=== PATIENT | female | born 1970 | race Hispanic/Latino ===

== ENCOUNTER → 2018-03-27 | Outpatient (CLI) | payer OTHER ==
--- NOTE | 2018-03-27 17:23 | Diagnostic Imaging Report ---
EXAMINATION: CHEST 2 VIEWS INDICATION: \[id number] \S\[id number] \S\CHRONIC COUGH COMPARISON: None FINDINGS: PA and lateral views TUBES and LINES: None. LUNGS: Lungs are well inflated. Lungs are clear. Left lower lobe dense nodule likely calcified granuloma. Few additional medial right upper lobe tiny calcified granulomas. There is no evidence of pneumonia or pulmonary edema. PLEURA: No pleural effusion or pneumothorax. HEART AND MEDIASTINUM: The cardiomediastinal silhouette is unremarkable. BONES AND SOFT TISSUES: No acute osseous lesion. Bilateral breast implants. UPPER ABDOMEN: No free air under the diaphragm. IMPRESSION: No acute thoracic abnormality. Few bilateral calcified granulomas. Signed by: Dr. Afia Funk M.D. on 03/27/2018 5:19 PM
== END ==
LOC: RAD 16:45
PROVIDERS: ATTEND Family Medicine
DX: R05 Cough (principal)
CPT/HCPCS: 71046

== ENCOUNTER → 2018-04-09 | Day surgery (SDC) | payer OTHER ==
[2018-04-08 15:17] LABS: BASOPHILS # (AUTO) 0.1 (0.0-0.1); BASOPHILS % 0.6 % (0.0-1.0); EOSINOPHILS # (AUTO) 0.1 (0.0-0.4); HEMATOCRIT 38.9 % (34.2-44.1); HEMOGLOBIN 12.6 g/dL (12.0-16.0); LYMPHOCYTES # (AUTO) 2.3 (1.0-3.2); LYMPHOCYTES % 23.9 % (18.0-39.1); MEAN CORPUSCULAR HEMOGLOBIN 28.4 pg (28-32); MEAN CORPUSCULAR HGB CONC 32.4 g/dL (31-35); MEAN CORPUSCULAR VOLUME 87.8 fL (81-99); MONOCYTES # (AUTO) 0.6 (0.2-0.8); NEUTROPHILS # (AUTO) 6.4 (2.1-6.9); NEUTROPHILS % 68.3 % (38.7-80.0); PLATELET COUNT 359 x10e3/uL (140-360); RED BLOOD COUNT 4.43 x10e6/uL (3.6-5.1); RED CELL DISTRIBUTION WIDTH 12.9 % (11.7-14.4)
[2018-04-08 15:25] LABS: INR 1.16; PROTHROMBIN TIME 13.9 seconds (11.9-14.5)
[2018-04-08 15:31] LABS: ANION GAP 9.5 mmol/L (8-16); BLOOD UREA NITROGEN 9 mg/dL (7-26); BUN/CREATININE RATIO 11 (6-25); CALCIUM 8.8 mg/dL (8.4-10.2); CARBON DIOXIDE 25 mmol/L (22-29); CHLORIDE 104 mmol/L (98-107); CREATININE, SERUM 0.81 mg/dL (0.57-1.11); EST GLOMERULAR FILTRATION RATE > 60 ML/MIN (60-); GLUCOSE 85 mg/dL (74-118); POTASSIUM 3.5 mmol/L (3.5-5.1); SODIUM 135 mmol/L (136-145)
[~2018-04-09] MED LIST: ACETAMINOPHEN 1000 MG/100 ML 100 ML IV ONE; BACITRACIN 50,000 UNIT VIAL ONE; CEFAZOLIN SOD 1 GM VIAL ONE; DEXAMETHASONE SOD PHOS INJ 4 MG/ML VIAL IV ONE; EPHEDRINE SULFATE INJ 50 MG/10 ML SYR IV ONE; FENTANYL CITRATE/PF 100MCG/2 ML INJ ONE; LIDOCAINE HCL 2% LOCAL INJ 5 ML SDV VIAL INJ ONE; MIDAZOLAM HCL 2 MG/2 ML VIAL ONE; ONDANSETRON HCL INJ 2 MG/ML VIAL IV ONE; PROPOFOL IV EMULSION 10 MG/ML 20 ML VIAL IV ONE; SEVOFLURANE INHAL SOLN 250 ML PEN BTL INH ONE; TROKENDI PO
[2018-04-09 15:40] VITALS: BP 126/81
--- OUTSIDE RECORDS SUMMARY | 2018-04-30 07:40 | XMS REPORT | Summary of Care ---
Author Organization Unknown Address Unknown Phone Unavailable Encounter HQ Encntr_alias(FIN) [id number] Date(s): 12/09/14 - 12/09/14 [facility] Outpatient Imaging - [id number] [place] [address] [phone] Discharge Disposition: Home Physician Attending: Vijay Robbins MD Vital Signs No data available for this section Problem List No data available for this section Allergies, Adverse Reactions, Alerts Substance Reaction Severity Status NKDA Active Medications No data available for this section Results No data available for this section Immunizations No data available for this section Procedures No data available for this section Social History No data available for this section Assessment and Plan No data available for this section
--- OUTSIDE RECORDS SUMMARY | 2018-04-30 07:40 | XMS REPORT | Summary of Care ---
Author Organization Unknown Address Unknown Phone Unavailable Encounter HQ Encntr_alibrenda(SOWMYA) [id number] Date(s): 02/03/15 - 02/03/15 [facility] [address] [place] [address]- [phone] Discharge Disposition: Home Physician Attending: David Frausto MD Physician_Referring: David Frausto MD Vital Signs No data available for [...]
--- OUTSIDE RECORDS SUMMARY | 2018-04-30 07:40 | XMS REPORT | Summary of Care ---
Author Author [facility] Organization [facility] Address Unknown Phone Unavailable Encounter HQ Lucinda(SOWMYA) [id number] Date(s): 01/01/18 - 01/02/18 [facility] [address] [place] [address]- Discharge Disposition: Home or Self Care Attending Physician: Christine Garcia MD Admitting Physician: Christine Garcia MD Referring Physician: Christine Garcia MD Vital Signs 1 2 3 Most recent to oldest [Reference Range]: 172.72 cm (12/19/17 12:57 PM) Height 98.9 DegF (01/02/18 7:31 AM) 98 DegF (01/02/18 12:00 AM) 98.5 DegF (01/01/18 4:17 PM) Temperature Oral [96.4-99.1 DegF] 105/63 mmHg (01/02/18 7:31 AM) 96/58 mmHg (01/02/18 12:00 AM) 108/55 mmHg (01/01/18 4:17 PM) Blood Pressure [90-140/60-90 mmHg] 16 BRMIN (01/02/18 9:11 AM) 16 BRMIN (01/02/18 7:31 AM) 16 BRMIN (01/02/18 12:00 AM) Respiratory Rate [14-20 BRMIN] 71 bpm (01/02/18 7:31 AM) 53 bpm *LOW* (01/02/18 12:00 AM) 64 bpm (01/01/18 4:17 PM) Peripheral Pulse Rate [60-100 bpm] 70.455 kg (12/19/17 12:57 PM) Weight 23.62 m2 (12/19/17 12:57 PM) Body Mass Index Problem List Condition Effective Dates Status Health Status Informant Migraines(Confirmed) Active Allergies, Adverse Reactions, Alerts Substance Reaction Severity Status NKDA Active Medications acetaminophen (ANES) Route: IV, Drug form: INJ, ONCE, Stop date: 01/01/18 11:40:00 CDT Start Date: 01/01/18 Stop Date: 01/01/18 Status: Completed Aleve 220 mg, PO, none taken in 3 weeks, 0 Refill(s) Start Date: 12/19/17 Status: Ordered Ancef + sterile water 20 mL 2 gm, Route: IV, [id number], Dosing Weight 70.455, kg, Start date: 01/01/18 16:00: 00 CDT, Duration: 1 day, Stop date: 01/02/18 14:00:00 CDT, ABX Indication: Surgical Prophylaxis Notes: (Same As: Ancef, Kefzol) MEDICATION WASTE Product Size: 1000 mgProduct Wasted: ___ mg Start Date: 01/01/18 Stop Date: 01/02/18 Status: Discontinued ceFAZolin (ANES) Route: IV, Drug form: INJ, ONCE, Stop date: 01/01/18 11:35:00 CDT Start Date: 01/01/18 Stop Date: 01/01/18 Status: Completed D5W 1/2NS + KCL 20mEq/L 1000ml (Premix) 1,000 mL 1,000 mL, Rate: 75 ml/hr, Infuse over: 13.3 hr, Route: IV, Dosing Weight 70.455 kg, Total Volume: 1,000, Start date: 01/01/18 13:57:00 CDT, Duration: 30 day, Stop date: 01/31/18 13:56:00 CDT, 1.85, m2 Notes: PREMIX IV - Do Not AlterWASTE: F/P - Sink; E - Municipal Trash Bin Start Date: 01/01/18 Stop Date: 01/02/18 Status: Discontinued dexamethasone (ANES) Route: IV, Drug form: INJ, ONCE, Stop date: 01/01/18 11:40:00 CDT Start Date: 01/01/18 Stop Date: 01/01/18 Status: Completed ePHEDrine (ANES) Route: IV, Drug form: INJ, ONCE, Stop date: 01/01/18 11:40:00 CDT Start Date: 01/01/18 Stop Date: 01/01/18 Status: Completed fentaNYL (ANES) Route: IV, Drug form: INJ, ONCE, Stop date: 01/01/18 11:35:00 CDT Start Date: 01/01/18 Stop Date: 01/01/18 Status: Completed glycopyrrolate (ANES) Route: IV, Drug form: INJ, ONCE, Stop date: 01/01/18 11:40:00 CDT Start Date: 01/01/18 Stop Date: 01/01/18 Status: Completed Inderal LA 120 mg, 2 cap, Route: PO, Drug form: ERCAP, Daily, Dosing Weight 70.455, kg, Start date: 01/02/18 9:00:00 CDT, Duration: 30 day, Stop date: 01/31/18 9:00:00 CDT Notes: Take with food. Do not crush or chew. (Same as: Inderal LA) Start Date: 01/02/18 Stop Date: 01/02/18 Status: Discontinued ketOROLAC (ANES) IV, ONCE Start Date: 01/01/18 Stop Date: 01/01/18 Status: Completed Lactated Ringers Injection IV (ANES) 1000 mL Route: IV, Total Volume: 1,000, Start date: 01/01/18 10:37:00 CDT, Stop date: 11:37:00 CDT Start Date: 01/01/18 Stop Date: 01/01/18 Status: Completed Lactated Ringers Injection IV 1,000 mL 1,000 mL, Rate: 25 ml/hr, Infuse over: 40 hr, Route: IV, Dosing Weight 70.455 kg , Total Volume: 1,000, Start date: 01/01/18 8:11:00 CDT, Duration: 1 day, Stop date: 01/02/18 8:10:00 CDT, 1.85, m2 Start Date: 01/01/18 Stop Date: 01/01/18 Status: Discontinued lidocaine (ANES) Route: IV, Drug form: INJ, ONCE, Stop date: 01/01/18 11:35:00 CDT Start Date: 01/01/18 Stop Date: 01/01/18 Status: Completed metoclopramide (ANES) Route: IV, Drug form: INJ, ONCE, Stop date: 01/01/18 11:40:00 CDT Start Date: 01/01/18 Stop Date: 01/01/18 Status: Completed midazolam (ANES) Route: IV, Drug form: SOLN, ONCE, Stop date: 01/01/18 11:35:00 CDT Start Date: 01/01/18 Stop Date: 01/01/18 Status: Completed morphine Sulfate 6 mg, 3 mL, Route: PO, Drug form: SOLN, Q2H, Dosing Weight 70.455, kg, PRN Pain Score 7-10, Start date: 01/01/18 20:24:00 CDT, Stop date: 01/31/18 20:23:00 CDT Notes: (Same as:MORPhine Sulfate) Start Date: 01/01/18 Stop Date: 01/02/18 Status: Discontinued neostigmine (ANES) Route: IV, Drug form: INJ, ONCE, Stop date: 01/01/18 15:03:00 CDT Start Date: 01/01/18 Stop Date: 01/01/18 Status: Completed nitroglycerin 2% topical ointment 1 inch, Route: TOP, Drug Form: OINT, Dosing Weight 70.455, kg, BID, Start date: 01/02/18 9:00:00 CDT, Duration: 30 day, Stop date: 01/31/18 17:00:00 CDT Notes: 1 gram is approximately 1 inch of nitroglycerin ointment (20 mg NTG per gram) (Same as:Nitro-Bid) Start Date: 01/02/18 Stop Date: 01/02/18 Status: Discontinued nitroglycerin 2% topical ointment 0.5 inch, Route: TOP, Drug Form: OINT, Dosing Weight 70.455, kg, BID, NOW, Start date: 01/01/18 14:40:00 CDT, Duration: 30 day, Stop date: 01/31/18 9:00: 00 CDT Notes: 1 gram is approximately 1 inch of nitroglycerin ointment (20 mg NTG per gram) (Same as:Nitro-Bid) Start Date: 01/01/18 Stop Date: 01/01/18 Status: Discontinued Sims 5/325 oral tablet 2 tab, Route: PO, Drug Form: TAB, Dosing Weight 70.455, kg, Q4H, PRN Pain Score 4-6, Start date: 01/01/18 20:24:00 CDT, Duration: 30 day, Stop date: 01/31/18 20 :23:00 CDT Notes: (Same as: Sims 325/5) Do not exceed 4gm/day of acetaminophen. Start Date: 01/01/18 Stop Date: 01/02/18 Status: Discontinued Sims 5/325 oral tablet 1 tab, Route: PO, Drug Form: TAB, Dosing Weight 70.455, kg, Q4H, PRN Pain Score 1-3, Start date: 01/01/18 20:24:00 CDT, Duration: 30 day, Stop date: 01/31/18 20 :23:00 CDT Notes: (Same as: Sims 325/5) Do not exceed 4gm/day of acetaminophen. Start Date: 01/01/18 Stop Date: 01/02/18 Status: Discontinued phenylephrine (ANES) Route: IV, Drug form: INJ, ONCE, Stop date: 01/01/18 12:35:00 CDT Start Date: 01/01/18 Stop Date: 01/01/18 Status: Completed propofol (ANES) Route: IV, Drug form: INJ, ONCE, Stop date: 01/01/18 11:35:00 CDT Start Date: 01/01/18 Stop Date: 01/01/18 Status: Completed propranolol 120 mg oral capsule, extended release 120 mg=1 cap, PO, Daily, # 30 cap, 0 Refill(s) Start Date: 12/19/17 Stop Date: 01/18/18 Status: Ordered rocuronium (ANES) Route: IV, Drug form: INJ, ONCE, Stop date: 01/01/18 11:35:00 CDT Start Date: 01/01/18 Stop Date: 01/01/18 Status: Completed senna 8.6 mg, 1 tab, Route: PO, Drug Form: TAB, Dosing Weight 70.455, kg, BID, Start date: 01/01/18 17:00:00 CDT, Duration: 30 day, Stop date: 01/31/18 9:00:00 CDT Notes: (Same as: Senokot) Start Date: 01/01/18 Stop Date: 01/02/18 Status: Discontinued Valium 5 mg, 1 tab, Route: PO, Drug form: TAB, TID, Dosing Weight 70.455, kg, Start date: 01/01/18 17:00:00 CDT, Duration: 30 day, Stop date: 01/31/18 13:00:00 CDT Notes: (Same as: Valium) Start Date: 01/01/18 Stop Date: 01/02/18 Status: Discontinued Results No data available for this section Immunizations No data available for this section Procedures Procedure Date Related Diagnosis Body Site Status Colonoscopy Completed Esophagogastroduodenoscopy Completed Social History Social History Type Response Alcohol Never Smoking Status Never smoker; Exposure to Tobacco Smoke None; Cigarette Smoking Last 365 Days No; Reg Smoking Cessation Counseling No entered on: 01/01/18 Assessment and Plan Extracted from: Title: Clinical Document Author: Christine Garcia Date: 01/02/18 MD Breast Surgical Oncology POD #1 Pt examined with at bedside. No issues o/n. OOB and ambulating to bathroom, tolerating reg diet. Dressings removed; skin pink and warm bilaterally with minimal ecchymosis, right > left. The NAC and nipples are pink. Drains have normal SS SITA output. Condition: stable Diagnosis: Genetic mutation Activity: no heavy lifting Wound care: and bathing, per PRS team Diet: regular F/U: appts arranged with breast (lakesha) and PRS (melissa) Meds: All home rx have been arranged by PRS team Discharge instructions have been submitted Does not need to be seen by dr Lopez before discharge //
--- OUTSIDE RECORDS SUMMARY | 2018-04-30 07:40 | XMS REPORT | Continuity of Care Document ---
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 06/02/2017 [facility] G43 - MIGRAINE Active 2015 [facility] EPICGASTRIC PAIN Active 01/13 [facility] H/A INTERNAL TEREMORS Active 04/11/2014 [facility] Migraines Active Problem 01/05/2018 [facility] Medications Medication Details Route Status Patient Instructions Ordering Provider Order Date Source Nitroglycerin 0.02 MG/MG Topical Ointment 1 inch, Route: TOP, Drug Form: OINT, Dosing Weight 70.455, kg, BID, Start date: 9:00:00 CDT, Duration: 30 day, Stop date: 01/31/18 17:00:00 CDTNotes: 1 gram is approximately 1 inch of nitroglycerin ointment (20 mg NTG per gram) (Same as:Nitro-Bid) Inactive 2017 [facility] Propranolol 120 mg, 2 cap, Route: PO, Drug form: ERCAP , Daily, Dosing Weight 70.455, kg, Start date: 01/02/18 9:00:00 CDT, Duration: 30 day, Stop date: 01/31/18 9:00:00 CDTNotes: Take with food. Do not crush or chew. (Same as: Inderal LA) Inactive 01/02/2018 [facility] Morphine 6 mg, 3 mL, Route: PO, Drug form: SOLN, Q2H, Dosing Weight 70.455, kg, PRN Pain Score 7-10, Start date: 01/01/18 20:24:00 CDT , Stop date: 01/31/18 20:23:00 CDTNotes: (Same as:MORPhine Sulfate) No Longer Active 01/02/2018 [facility] Acetaminophen 325 MG / Hydrocodone Bitartrate 5 MG Oral Tablet [Diamond 5/325] 2 tab, Route: PO, Drug Form: TAB, Dosing Weight 70.455, kg, Q4H, PRN Pain Score 4-6, Start date: 01/01/18 20:24:00 CDT, Duration: 30 day , Stop date: 01/31/18 20:23:00 CDTNotes: (Same as: Diamond 325/5) Do not exceed 4gm/day of acetaminophen. No Longer Active 01/02/2018 [facility] Valium 5 mg, 1 tab, Route: PO, Drug form: TAB, TID, Dosing Weight 70.455, kg, Start date: 01/01/18 17:00:00 CDT, Duration: 30 day, Stop date: 01/31/18 13:00:00 CDTNotes: (Same as: Valium) No Longer Active 01/01/2018 [facility] sennosides, CORRECTION 8.6 mg, 1 tab, Route: PO, Drug Form: TAB, Dosing Weight 70.455, kg, BID, Start date: 01/01/18 17:00:00 CDT, Duration : 30 day, Stop date: 01/31/18 9:00:00 CDTNotes: (Same as: Senokot) No Longer Active 01/01/2018 [facility] Ancef + sterile water 20 mL 2 gm, Route: IV, [id number], Dosing Weight 70.455, kg, Start date: 01/01/18 16:00:00 CDT, Duration: 1 day, Stop date: 01/02/18 14:00:00 CDT, ABX Indication: Surgical ProphylaxisNotes: ( Same As: Ancef, Kefzol) MEDICATION WASTE Product Size: 1000 mg Product Wasted: ___ mg No Longer Active 01/01/2018 [facility] neostigmine (ANES) Route: IV, Drug form: INJ, ONCE, Stop date: 01/01/18 15:03:00 CDT Inactive 01/01/2018 [facility] Nitroglycerin 0.02 MG/MG Topical Ointment 0.5 inch, Route: TOP, Drug Form: OINT, Dosing Weight 70.455, kg, BID, NOW, Start date: 02/11 14:40:00 CDT, Duration: 30 day, Stop date: 01/31/18 9:00:00 CDTNotes: 1 gram is approximately 1 inch of nitroglycerin ointment (20 mg NTG per gram) ( Same as:Nitro-Bid) Inactive 01/2018 [facility] ketOROLAC (ANES) IV, ONCE Inactive 01/01/2018 [facility] D5W 1/2NS + KCL 20mEq/L 1000ml (Premix) 1,000 mL 1, 000 mL, Rate: 75 ml/hr, Infuse over: 13.3 hr, Route: IV, Dosing Weight 70.455 kg , Total Volume: 1,000, Start date: 01/01/18 13:57:00 CDT, Duration: 30 day, Stop date: 01/31/18 13:56:00 CDT, 1.85, u3Cjmht: PREMIX IV - Do Not Alter WASTE: F/P - Sink; E - Municipal Trash Bin No Longer Active 01/01/2018 [facility] phenylephrine (ANES) Route: IV, Drug form: INJ, ONCE, Stop date: 01/01/18 12:35:00 CDT Inactive 01/01/2018 [facility] dexamethasone (ANES) Route: IV, Drug form: INJ, ONCE, Stop date: 01/01/18 11:40:00 CDT Inactive 01/01/2018 [facility] acetaminophen (ANES) Route: IV, Drug form: INJ, ONCE, Stop date: 01/01/18 11:40:00 CDT Inactive 01/01/2018 [facility] metoclopramide (ANES) Route: IV, Drug form: INJ, ONCE , Stop date: 01/01/18 11:40:00 CDT Inactive 01/01/2018 [facility] glycopyrrolate (ANES) Route: IV, Drug form: INJ, ONCE , Stop date: 01/01/18 11:40:00 CDT Inactive 01/01/2018 [facility] ePHEDrine (ANES) Route: IV, Drug form: INJ, ONCE, Stop date: 01/01/18 11:40:00 CDT Inactive 01/01/2018 [facility] propofol (ANES) Route: IV, Drug form: INJ, ONCE, Stop date: 01/01/18 11:35:00 CDT Inactive 01/01/2018 [facility] fentaNYL (ANES) Route: IV, Drug form: INJ, ONCE, Stop date: 01/01/18 11:35:00 CDT Inactive 01/01/2018 [facility] rocuronium (ANES) Route: IV, Drug form: INJ, ONCE, Stop date: 01/01/18 11:35:00 CDT Inactive 01/01/2018 [facility] ceFAZolin (ANES) Route: IV, Drug form: INJ, ONCE, Stop date: 01/01/18 11:35:00 CDT Inactive 01/01/2018 [facility] lidocaine (ANES) Route: IV, Drug form: INJ, ONCE, Stop date: 01/01/18 11:35:00 CDT Inactive 01/01/2018 [facility] midazolam (ANES) Route: IV, Drug form: SOLN, ONCE, Stop date: 01/01/18 11:35:00 CDT Inactive 01/01/2018 [facility] Lactated Ringers Injection IV (ANES) 1000 mL Route: IV , Total Volume: 1,000, Start date: 01/01/18 10:37:00 CDT, Stop date: 01/01/18 11 :37:00 CDT Inactive 01/01/2018 [facility] Calcium Chloride 0.0014 MEQ/ML / Potassium Chloride 0.004 MEQ/ML / Sodium Chloride 0.103 MEQ/ML / Sodium Lactate 0.028 MEQ/ML Injectable Solution 1,000 mL, Rate: 25 ml/hr, Infuse over: 40 hr, Route: IV, Dosing Weight 70.455 kg, Total Volume: 1,000, Start date: 01/01/18 8:11:00 CDT, Duration: 1 day, Stop date: 01/02/18 8:10:00 CDT, 1.85, m2 Inactive 01/01/2018 [facility] Aleve 220 mg, PO, none taken in 3 weeks, 0 Refill(s) Active 12/19/2017 [facility] propranolol 120 mg oral capsule, extended release 120 mg=1 cap, PO, Daily, # 30 cap, 0 Refill(s) Active 12/19/2017 [facility] Allergies, Adverse Reactions, Alerts Substance Category Reaction Severity Reaction type Status Date Reported Comments Source Immunizations Immunization Date Given Site Status Last Updated Comments Source Results Order Name Results Value Reference Range Date Interpretation Comments Source Breast BX Perc Needle Core Uni MRI Breast BX Perc Needle Core Uni MRI MRI BIOPSY RIGHT BREAST: 07/30/2017 CLINICAL: /N63.0 Unspecified Lump In Unspecified Breast. PATIENT CONSENT: The procedure and its risks, benefits, and alternatives were explained in detail to the patient, who agreed to proceed and signed an informed consent form. All questions were answered. Correlation is made to exams dated: 07/10/2017 breast MRI, 07/10/2017 ultrasound, 07/10/2017 mammogram - [facility] , 04/18/2017 mammogram, and 04/18/2017 mammogram - [facility]. Axial and sagittal T1 and T2 images were obtained with a breast MRI. An MRI biopsy was requested for the 1.6 cm enhancement located in the right breast at 6 o'clock, 4 cm from the nipple. This was described on the previous MRI report. The procedure was canceled as the area of increased signal had decreased and appeared to be due to a tortuous vessel. IMPRESSION: MRI BIOPSY 1. MRI biopsy of the 1.6 cm linear enhancement in the RIGHT breast, 6:00, 4 cm FN was canceled due to enhancement less prominent and believed to be vascular in origin. RECOMMENDATION: 1. A BILATERAL mammogram and BILATERAL mammogram in December, and a bilateral contrast-enhanced breast MRI to stay on high-risk protocol. 2. CLINICAL FOLLOW-UP PER DR. MCKEON. I personally reviewed the imaging findings and recommendations with the patient. I emphasized to her to practice with self-examinations and to return immediately if she should note any concerning changes. Charlette Shaffer M.D. sg/:08/01/2017 18:50:07 Cable Reeler(s): Bailee Johnston, [facility] letter sent: High Risk Any BI-RADS 07/30/2017 - - Read by: Charlette Shaffer MD Dictated Date/time: 08/01/17 18:50 Electronically Signed by: Charlette Shaffer MD 08/01/17 18 :50 FINAL REPORT Formerly [facility] Breast w/wo contrast bilat MRI Breast w/wo contrast bilat MRI BREAST MRI OF BOTH BREASTS : 07/10/2017 CLINICAL: HISTORY: 47 yo high risk female with known CHEK2 genetic mutation and history of abnormal imaging at [facility] on 04/18/17. Ultrasound showed a probably benign 0.4 cm mass in the RIGHT breast at 5:00, 7 cm FN and a probably benign 0.7 cm cluster of cysts in the LEFT breast at 5:00, 2 cm FN. A six month follow-up was recommended. She also had a same day bilateral mammogram and bilateral ultrasound prior to undergoing an MRI. PLEASE SEE SEPARATE REPORT. Family history of breast cancer: sister at 30. Prior benign RIGHT core biopsy, 2012. No prior breast surgeries. COMPARISON:Comparison is made to exams dated: 07/10/2017 ultrasound, 2016 mammogram - [facility], 04/18/2017 mammogram, and 04/18/2017 mammogram - [facility]. INFORMED CONSENT: The procedure was explained to the patient including possible risks, benefits, complications and alternatives. The patient understood and desired to proceed. TECHNIQUE: High resolution 1.4 mm RODEO plus, axial acquisitions were obtained of both breasts using an [employer] 1.5 Narcisa dedicated breast MRI preceding and following the administration of 13 cc's of Multihance, subtraction, 2D and 3D maximum intensity projections (MIP), multiplanar reconstructions (MPR) and ELIZABETH Time Activity curves were performed on the Physician's Review Station with [employer]. MRI FINDINGS: RIGHT BREAST FINDINGS: I do not identify any definite evidence of spiculated or linear beaded enhancement to suggest malignancy. The biopsy proven fibroadenoma with clip and artifact at 10:00, posterior depth measures 2.1 cm in greatest dimension. The lesion shows predominantly low-signal persistent enhancement but several slices demonstrate internal plateau and washout enhancement (see axial image #65). Sagittal image 154/512 and axial image #96 demonstrates a 1.6 cm linear enhancement with persistent kinetics near 6:00, middle depth, 4 cm FN. Recommend MRI-guided biopsy. The 0.4 cm oval solid nodule at 5:00, 7 cm FN identified with same day ultrasound is not evident and presumed to be due to a benign process such as a fibroadenoma. A cyst was noted at 3:00, 5 cm FN on image #82.The nipple-areolar complex appears to be unremarkable. The visualized lymph nodes appear architecturally preserved. The chest wall structures appear normal. No internal mammary adenopathy. LEFT BREAST FINDINGS: I do not identify any definite evidence of spiculated or linear beaded enhancement to suggest malignancy. The nipple-areolar complex appears to be unremarkable. The visualized lymph nodes appear architecturally preserved. The chest wall structures appear normal. No internal mammary adenopathy. IMPRESSION: SUSPICIOUS OF MALIGNANCY 1. LINEAR ENHANCEMENT MEASURING 1.6 CM IN GREATEST AP DIMENSION, 6:00 RIGHT BREAST, MIDDLE DEPTH, 4 CM FN. RECOMMEND MRI-GUIDED BIOPSY. 2. 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 CONSIDER SURGICAL EXCISION. 3. THE 0.4 CM OVAL SOLID NODULE IDENTIFIED ON SAME DAY ULTRASOUND DOES NOT ENHANCE SUGGESTING BENIGN PROCESS AND CAN MOST LIKELY BE FOLLOWED. 4. THERE IS NO DEFINITE MRI EVIDENCE TO SUGGEST MALIGNANCY INVOLVING THE LEFT BREAST. 5. NO SUSPICIOUS ADENOPATHY. RECOMMENDATION: 1. PATIENT HAS BEEN TENTATIVELY SCHEDULED TO RETURN FOR A RIGHT BREAST MRI- GUIDED CORE BIOPSY ON 07/30/17. PENDING PHYSICIAN ORDERS AND INSURANCE AUTHORIZATION. Victor Manuel Jackson LVN telephonically discussed the findings and recommendations with the patient under my direction on 07/16/17. Charlette Shaffer M.D. sg/:07/16/2017 13:39:02 Cable Reeler(s): Bailee Johnston [facility] letter sent: BI-RADS 4/5 MRI BI-RADS: 4a Suspicious abnormality - low suspicion for malignancy 07/10/2017 - - Read by: Charlette Shaffer MD Dictated Date/time: 07/16/17 13:39 Electronically Signed by: Charlette Shaffer MD 07/16/17 13 :39 FINAL REPORT [facility] Breast Complete Tin US Breast Complete Tin US AMENDMENT: 07/14/2017 Charlette Shaffer M.D. The purpose of this addendum is to document that comparison has now been made to prior studies from [facility] dated 03/09/14, 02/27/15,and 03/01/16 and 04/18/17. The biopsy proven 1.7 x 1.7 x 1.1 cm fibroadenoma at the 10:00 position, RIGHT breast, posterior depth has SLIGHTLY INCREASED in size since 2013 (1.5 x 1.3 x 1.0 cm, 03/09/14). The oval solid nodule at 5:00, 7 cm FN in the RIGHT breast is believed to be NEW as well as the complex cystic cluster in the 5:00 position of the LEFT breast, 2 cm FN. The static ultrasound images confirm fluctuating fibrocystic changes bilaterally. Otherwise, there have been no other significant interval changes in either breast. Correlation with same day MRI to be performed. PLEASE SEE SEPARATE REPORT. Amended BI-RADS: 0 Indeterminate COMPLETE ULTRASOUND OF BOTH BREASTS AND AXILLA: 07/10/2017 CLINICAL: HISTORY: 47 yo high risk female with known CHEK2 genetic mutation and history of abnormal imaging at [facility] on 04/18/17. Ultrasound showed a probably benign 0.4 cm mass in the RIGHT breast at 5:00, 7 cm FN and a probably benign 0.7 cm cluster of cysts in the LEFT breast at 5:00, 2 cm FN. A six month follow-up was recommended. She is also scheduled for same day high risk screening breast MRI. Family history of breast cancer: sister at 30. Prior benign RIGHT core biopsy, 2012. No prior breast surgeries. COMPARISON: To be obtained from [facility]. RIGHT BREAST FINDINGS: The entire right breast was evaluated including all four quadrants, axillary tail, retroareolar region and axilla.The reported biopsy proven benign mass at 10:00, 5 cm FN is a well-circumscribed lobulated solid mass measuring 1.7 x 1.7 x 1.1 cm. No internal flow. At the 5:00 position, 7 cm FN, a circumscribed oval solid nodule measuring 0.4 x 0.4 x 0.3cm without internal flow was identified. Also, a 0.9 cm cyst with internal short septations at 4:00, 6 cm FN was seen. No additional abnormalities that would be suspicious for malignancy were identified. Scattered subcentimeter cysts were identified. No axillary adenopathy. LEFT BREAST AND AXILLA FINDINGS: The entire left breast was evaluated including all four quadrants, axillary tail, subareolar region and axilla. A 0.7 cm complex cluster of cysts with internal echoes and thick septations at 5:00, 2 cm FN was identified. No abnormalities that would be suspicious for malignancy were identified. No axillary adenopathy. IMPRESSION: INCOMPLETE: NEEDS ADDITIONAL IMAGING EVALUATION 1. 1.7 CM BIOPSIED MASS WITH RIBBON-CLIP, 10:00, RIGHT BREAST, POSTERIOR DEPTH , AND 0.4 CM FIBROADENOMA-LIKE NODULE, 5:00, RIGHT BREAST, 7 CM FN. I WOULD LIKE TO COMPARE WITH THE PRIOR STUDIES FROM [facility]. 2. MILD BILATERAL FIBROCYSTIC CHANGES; 0.7 CM COMPLEX CLUSTER OF CYSTS, 5:00, LEFT BREAST, 2 CM FN, TO BE CORRELATED WITH SAME DAY MRI WELL IMAGES FROM [facility]. 3. NO AXILLARY ADENOPATHY. RECOMMENDATION: 1. WE WILL ATTEMPT TO RETRIEVE THE PRIOR STUDIES FROM [facility] FOR COMPARISON AND AN ADDENDUM WILL BE ISSUED. ALSO, CORRELATION WILL BE MADE WITH SAME DAY MRI AND A SEPARATE REPORT WILL BE ISSUED. I personally reviewed the imaging findings and recommendations with the patient. Charlette Shaffer M.D. sg/:07/10/2017 19:04:54 Cable Reeler(s): Toña Hernandez R.D.M.S, [facility]; Deyanira Garcia, [facility] letter sent: Needs [facility] Ultrasound BI-RADS: 0 Indeterminate 07/10/2017 - - Read by: Charlette Shaffer MD Dictated Date/time: 07/14/17 12:33 Electronically Signed by: Charlette Shaffer MD 07/14/17 12 :33 FINAL REPORT - - Read by: Charlette Shaffer MD Dictated Date/time: 07/10/17 19:04 Electronically Signed by: Charlette Shaffer MD 07/10/17 19 :04 FINAL REPORT [facility] Breast Mammo Diag TIN w jose incl CAD MA Breast Mammo Diag TIN w jose incl CAD MA BILATERAL DIGITAL DIAGNOSTIC MAMMOGRAM 3D/2D WITH CAD: 07/10/2017 CLINICAL: HISTORY: 47 yo high risk female with known CHEK2 genetic mutation and history of abnormal imaging at [facility] on 04/18/17. Ultrasound showed a probably benign 0.4 cm mass in the RIGHT breast at 5:00, 7 cm FN and a probably benign 0.7 cm cluster of cysts in the LEFT breast at 5:00, 2 cm FN. A six month follow-up was recommended. She is also scheduled for same day high risk screening breast MRI. Family history of breast cancer: sister at 30. Prior benign RIGHT core biopsy, 2013. No prior breast surgeries. Current study was evaluated with a Computer Aided Detection (CAD) system. COMPARISON:Comparison is made to exams dated: 04/18/2017 mammogram and 2016 mammogram - [facility]. TECHNIQUE: Digital Breast Tomosynthesis was performed and utilized for Interpretation. Current study was also evaluated with a Computer Aided Detection (CAD) system. FINDINGS: The tissue of both breasts is heterogeneously dense and nodular, which could obscure detection of small masses. Core biopsy RIBBON-CLIP with 2.1 cm mass in the posterior upper outer RIGHT breast are evident and I would like to compare to the prior studies from [facility]. No significant masses, calcifications, or other findings are seen in the LEFT breast. IMPRESSION: INCOMPLETE: NEEDS ADDITIONAL IMAGING EVALUATION PLEASE SEE SAME DAY ULTRASOUND REPORT. Charlette Shaffer M.D. sg/:07/10/2017 19:04:54 Cable Reeler(s): Toña Hernandez R.D.M.S, [facility]; Deyanira Garcia, [facility] letter sent: Needs [facility] Mammogram BI-RADS: 0 Indeterminate 07/10/2017 - - Read by: Charlette Shaffer MD Dictated Date/time: 07/10/17 19:04 Electronically Signed by: Charlette Shaffer MD 07/10/17 19 :04 FINAL REPORT [facility] Brain w/wo contrast MRI Brain w/wo contrast MRI COMPARISON: 02/15/2014 MRI exam. COMMENTS: Compared to 2013, the mild lateral ventriculomegaly is stable, with the right lateral ventricle showing stable large volume compared to the left lateral ventricle. No periventricular transependymal migration of CSF is identified. No foramen of Monro lesion is seen. The 3rd and 4th ventricles are normal in volume. No intraventricular mass is identified. The minimal right frontal white matter foci of increased T2 and FLAIR signal are stable. No diffusion restriction is seen. The brainstem appears unremarkable. The cerebellum appears unremarkable. The sella appears unremarkable. No pathologic enhancement is demonstrated. Moderate left maxillary sinusitis with air-fluid level is present. IMPRESSION: 1. No acute hemorrhage, acute ischemia, or mass. 2. Stable mild lateral ventriculomegaly with asymmetry of the lateral ventricular volume since 2013. No evidence of significant obstructive hydrocephalus. 3. Stable minimal right frontal white matter increased signal foci may be due to minimal chronic microvascular ischemia, vasculitis, or migraine cephalgia. 4. Left maxillary sinusitis. 12/19/2015 - - Read by: Tariq Fishman MD Dictated Date/time: 12/20/15 08:47 Electronically Signed by: Tariq Fishman MD 12/20/15 09 :03 FINAL REPORT [facility] Gallbladder scan HIDA w meds NM Gallbladder scan HIDA w meds NM PROCEDURE: Gallbladder scan HIDA with meds ( NM) CLINICAL INFORMATION 789.06 Abdominal Pain, Epigastric COMPARISON: Ultrasound 12/09/2014 Radiopharmaceutical: 6.2 mci of Tc-99m Choletec. 1.3 mcg of cholecystokinin was administered IV to assess the gallbladder ejection fraction. FINDINGS: There is prompt uptake of tracer by the liver at 5 minutes. Common duct and gallbladder activity are visualized at 15 minutes. There is normal small bowel activity. The gallbladder ejection fraction measures 78%. IMPRESSION: Normal HIDA scan and gallbladder ejection fraction. SL: 13 02/03/2015 - - Read by: Yves Huber MD Dictated Date/time: 02/03/15 13:28 Electronically Signed by: Yves Huber MD 02/03/15 13 :29 FINAL REPORT [facility] Abdomen complete US Abdomen complete US ABDOMEN ULTRASOUND CLINICAL HISTORY: Abdominal pain. COMPARISON IMAGING: None. FINDINGS: Liver: Measures 14.5 cm in length (normal: 13-17 cm). Echogenicity is unremarkable. No suspicious lesion or surface nodularity. Portal vein is patent with hepatopedal flow. Biliary: No gallstones, gallbladder wall thickening, or sonographic Hu's sign. There is no biliary duct dilation. Mid common bile duct measures 2 mm in diameter. Pancreas: No focal lesions. Spleen: Measures 9.1 cm in maximal dimension (normal < 13 cm). No focal lesion is seen. Kidneys: Right and left measure 10.1 and 10.4 cm in length, respectively (normal : 9-12 cm). No hydronephrosis, suspicious renal mass, or large shadowing stone. Vascular: Visualized portions of the IVC are patent. No obvious aneurysmal dilatation of the aorta. IMPRESSION: No significant abnormality. 12/09/2014 - - Read by: Reyna Farnsworth MD Dictated Date/time: 12/09/14 09:15 Electronically Signed by: Reyna Farnsworth MD 12/09/14 09 :18 FINAL REPORT [facility] Vital Signs Vital Sign Value Date Comments Source Respitory Rate 16 2017 [facility] Systolic (mm Hg) 105 2017 [facility] Diastolic (mm Hg) 63 2017 [facility] Respitory Rate 16 2017 [facility] Heart Rate 71 01/02/2018 [facility] Temperature Oral (F) 98.9 F 01/02/2018 [facility] Respitory Rate 16 2017 [facility] Temperature Oral (F) 98 F 02/2018 [facility] Systolic (mm Hg) 96 2017 [facility] Diastolic (mm Hg) 58 2017 [facility] Heart Rate 53 01/02/2018 [facility] Temperature Oral (F) 98.5 F 01/01/2018 [facility] Heart Rate 64 01/01/2018 [facility] Systolic (mm Hg) 108 2017 [facility] Diastolic (mm Hg) 55 2017 [facility] BMI Calculated 23.62 2017 [facility] Weight 70.455 12/19/2017 [facility] Height 172.72 cm 12/19/2017 [facility] BMI Calculated 22.55 2013 [facility] Height 172.72 cm 04/13/2014 [facility] Weight 67.273 04/13/2014 [facility] Encounters Location Location Details Encounter Type Encounter Number Reason For Visit Attending Provider ADM Date DC Date Status Source [facility] [id number] Vijay Robbins 02/15/2014 02/16/2014 [facility] [place] [id number] Vijay Robbins 03/04/2014 03/05/2014 [facility] Outpatient [id number] Pool [place]ox 201304/14/2014 [facility] [id number] Vijay Robbins 12/09/2014 12/10/2014 [facility] Outpatient [id number] David Frausto 02/03/2015 02/04/2015 [facility] [facility] [id number] Vijayshahrzad Robbins 12/19/2015 12/20/2015 [facility] Outpatient [facility] - [facility] [id number] Christine Checka 07/10/2017 07/11/2017 [facility] [place], operated by [facility] Outpatient [facility] - [facility] [id number] Christine Checka 07/30/2017 07/31/2017 [facility] Observation [id number] Christine Checka 201701/02/2018 [facility] Procedures Procedure Code Date Perfomer Comments Source Colonoscopy [id number] [facility] Esophagogastroduodenoscopy [id number] [facility]
--- OUTSIDE RECORDS SUMMARY | 2018-04-30 07:40 | XMS REPORT | Summary of Care ---
Author Author [facility] - [facility] Address Unknown Phone Unavailable Encounter HQ Encntr_vasiliy(FIN) [id number] Date(s): 07/10/17 - 07/10/17 [facility] [address] [place] [id number] [place] [address] [phone] Discharge Disposition: Home or Self Care Attending Physician: Christine Garcia MD Vital Signs No data available for [...]
--- OUTSIDE RECORDS SUMMARY | 2018-04-30 07:40 | XMS REPORT | Summary of Care ---
Author Organization Unknown Address Unknown Phone Unavailable Encounter HQ Encntr_jilbrenda(SOWMYA) [id number] Date(s): 04/13/14 - 04/13/14 [facility] [address] [place], [place] [id number] [place] [address] Discharge Disposition: Home Physician Attending: Pool Maddox MD Physician_Referring: Pool Maddox MD Reason for Visit H/A [employer] Vital Signs Most recent to 1 oldest [Reference Range]: Height 172.72 cm (04/13/14 4:00 PM) Weight 67.273 kg (04/13/14 4:00 PM) Body Mass Index 22.55 m2 (04/13/14 4:00 PM) Problem List No data available for this section Allergies, Adverse Reactions, Alerts Substance Reaction Severity Status NKDA Active Medications No data available for this section Medications Administered During Your Visit No data available for this section Immunizations No data available for this section
--- OUTSIDE RECORDS SUMMARY | 2018-04-30 07:40 | XMS REPORT | Summary of Care ---
Author Author [facility] Outpatient Imaging - [employer] [facility] Outpatient Imaging - [facility] Address Unknown Phone Unavailable Encounter HQ Encntr_alibrenda(FIN) [id number] Date(s): 07/30/17 - 07/30/17 [facility] [address] [place] [id number] [place] [address] [phone] Discharge Disposition: Home or Self Care Attending [...]
--- OUTSIDE RECORDS SUMMARY | 2018-04-30 07:40 | XMS REPORT ---
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 Allergies, Adverse Reactions, Alerts This patient has no known allergies or adverse reactions. Medications This patient has no known medications. Results Test Description Test Time Test Comments Text Results Atomic Results Result Comments CHEST 2 VIEWS 2018-03-27 17:18:00 [place] [address] Patient Name: TYLER BURGER MR #: [id number] : 1970 Age/Sex: 47/F Req #: [id number] Adm Physician: Ordered by: NESS MARIE, LEONORA Ferrara MD Report #: [id number] Location: [facility] Room/Bed: ____ Procedure: [id number] DX/CHEST 2 VIEWS Exam Date: 03/27/18 Exam Time: 1707 REPORT STATUS: Signed EXAMINATION: CHEST 2 VIEWS INDICATION: COMPARISON: None FINDINGS: PA and lateral views TUBES and LINES: None. LUNGS: Lungs are well inflated. Lungs are clear. Left lower lobe dense nodule likely calcified granuloma. Few additional medial right upper lobe tiny calcified granulomas. There is no evidence of pneumonia or pulmonary edema. PLEURA: No pleural effusion or pneumothorax. HEART AND MEDIASTINUM: The cardiomediastinal silhouette is unremarkable. BONES AND SOFT TISSUES: No acute osseous lesion. Bilateral breast implants. UPPER ABDOMEN: No free air under the diaphragm. IMPRESSION: No acute thoracic abnormality. Few bilateral calcified granulomas. Signed by: Dr. Yulia Maldonado M.D. on 03/27/2018 5:19 PM Dictated By: YULIA MALDONADO MD 18 COPY TO: LEONORA ARZOLA
--- OUTSIDE RECORDS SUMMARY | 2018-04-30 07:40 | XMS REPORT | Summary of Care ---
Author Organization Unknown Address Unknown Phone Unavailable Encounter HQ Encntr_vasiliy(SOWMYA) [id number] Date(s): 03/04/14 - 03/04/14 [facility] Outpatient Imaging - [address] Discharge Disposition: Home Physician Attending: Vijay Robbins MD Reason for Visit 285.29 - ANEMIA-OTHER CH Problem List No data available for this section Allergies, Adverse Reactions, Alerts No data available for this section Medications No data available for this section Medications Administered During Your Visit No data available for this section Immunizations No data available for this section
--- OUTSIDE RECORDS SUMMARY | 2018-04-30 07:40 | XMS REPORT | Summary of Care ---
Author Organization Unknown Address Unknown Phone Unavailable Encounter HQ Pramodr_vasiliy(SOWMYA) [id number] Date(s): 02/15/14 - 02/15/14 [facility] Outpatient Imaging - [address] Discharge Disposition: Home Physician Attending: Vijay Robbins MD Reason for Visit 338 - PAIN NEC Problem List No data available for this section Allergies, Adverse Reactions, Alerts No data available for this section Medications No data available for this section Medications Administered During Your Visit No data available for this section Immunizations No data available for this section
--- OUTSIDE RECORDS SUMMARY | 2018-04-30 07:40 | XMS REPORT | Summary of Care ---
Author Author [facility] Outpatient Imaging - [place] Organization [facility] - [place] Address Unknown Phone Unavailable Encounter HQ Pramodr_vasiliy(FIN) [id number] Date(s): 12/19/15 - 12/19/15 [facility] Outpatient Imaging - [place] [address] [place], [place] [id number] [place] [address] [phone] Discharge Disposition: Home Attending Physician: Vijay Robbins MD Vital Signs No data [...]
--- NOTE | 2018-05-05 09:16 | Operative Report ---
DATE OF PROCEDURE: April 09, 2018 PREOPERATIVE DIAGNOSES: 1. 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 2. Acquired absence of bilateral breasts. POSTOPERATIVE DIAGNOSES: 1. 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 2. Acquired absence of bilateral breasts. PROCEDURES PERFORMED: 1. Exchange of bilateral tissue expanders with permanent cohesive silicone gel implants, submuscular, Liberty MemoryGel Xtra Smooth High Profile, Xtra SHPX 490 mL, SN number on the right [id number] and SN number on the left [id number]. 2. Bilateral capsulotomies. 3. Revision of bilateral breast reconstruction. ANESTHESIA: General endotracheal. INDICATION FOR SURGERY: This is a 47-year-old female who has genetic susceptibility to breast cancer, and earlier this year underwent bilateral prophylactic nipple-sparing mastectomy and immediate reconstruction with tissue expanders. Patient is currently presenting for exchange of bilateral tissue expanders with permanent cohesive silicone gel breast implants, bilateral capsulotomies, and revision of bilateral breast reconstruction. The risks, alternatives, and possible complications of the above procedure were explained to the patient. These include, but are not limited to bleeding, infection, scarring, skin flap necrosis, capsule contracture, breast asymmetry, exposure or failure of silicone gel breast implants, wound dehiscence, unsatisfactory esthetic result, and possible need for further surgery. The patient had an opportunity to ask questions and have her questions answered and agreed to proceed with the proposed procedure. PROCEDURE IN DETAIL: The patient was marked in the preoperative holding area. She was then taken to the operating room and placed supine on the operating table. After adequate general anesthesia, the patient's bilateral breasts were prepped and draped in the usual surgical fashion. The preoperative markings were rechecked. An incision was made along the inframammary fold along the previous mastectomy incision with #15 blade. Tissue was dissected down to breast capsule. The tissue head rose grower was then deflated and removed. Both breast pockets were irrigated with normal saline with antibiotic solution. Extensive medial and superior capsulotomy was performed with the help of the Bovvanessa, Damari, and Darnell retractor as well as headlight. The new silicone gel implants were then placed in each pocket. They were 490 mL, Smooth High Profile Xtra cohesive silicone implants. It was noted that the pockets were displaced laterally and implants were removed, and revision of bilateral breast reconstruction was performed by placing lateral interrupted capsulorrhaphy sutures with interrupted #0 Ethibond. After the revision of bilateral breast reconstruction, the pockets were again irrigated with normal saline with antibiotic solution, and the silicone gel implants were again placed in each pocket. The patient was placed in the sitting position and the 2 breasts were checked for symmetry. They appeared to be symmetric. The mastectomy incisions were then closed with 2 layers of interrupted 3-0 Vicryl sutures and a running subcuticular 3-0 PDS suture. Steri-Strips were placed along each incision and the incisions were covered with 4 x 4's and the patient was wrapped with a large 6-inch Олег wrap. She tolerated the procedure well. There were no immediate complications. The needle and instrument count was correct at the end of the case, her breasts were symmetric at the end of the case, and she was transferred extubated to the recovery room. Job#: [id number]
== END | disposition home or self-care (01) ==
LOC: OR 09:21
PROVIDERS: ATTEND Plastic Surgery
DX: Z15.01 Genetic susceptibility to malignant neoplasm of breast (principal); Z90.13 Acquired absence of bilateral breasts and nipples; I83.90 Asymptomatic varicose veins of unspecified lower extremity; K21.9 Gastro-esophageal reflux disease without esophagitis; Z01.812 Encounter for preprocedural laboratory examination
CPT/HCPCS: 19342; 36415; 80048; 84702; 85025; 85610; 85730; J0690; J1100; J2001; J2250; J2405